=== PATIENT | female | born 1960 | race Caucasian/White ===

== ENCOUNTER 2018-10-15 12:11 | Emergency (ER) | payer MEDICARE, MEDICAID ==
[~2018-10-15] VITALS: Ht 162.6 cm; Wt 65.8 kg
[~2018-10-15 12:11] MED LIST: NEOM10DR6 EACH EAR
--- NOTE | 2018-10-15 12:15 | NUR ---
PT BROUGHT BACK TO ROOM ET WANTS TO USE THE RESTROOM BEFORE ANY ASSESSMENT DONE.
--- NOTE | 2018-10-15 12:40 | ED Chest Pain ---
General Chief Complaint: Chest Pain Stated Complaint: DIZZINESS Source: patient Exam Limitations: no limitations History of Present Illness Date Seen by Provider: Oct 15, 2018 Time Seen by Provider: 12:35 Initial Comments To ER by private vehicle with reports of intermittent dizziness and syncope. She has some right sided chest pain constant since last night after syncopal episode. She states "it feels like I was shot with an elephant gun". 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 She does after talking with her have some persecutory delusions but denies any known mental health illness. Timing/Duration: changing over time Severity/Quality: moderate Location: central Radiation: no radiation Activities at Onset: none ASA po SCREENING NURSE: No NTG SL SCREENING NURSE: No Associated Symptoms: No shortness of breath Allergies and Home Medications Allergies Uncoded Allergies: HAYFEVER, SINUS TYPE ALLERGIES (Allergy, Mild, 10/04/11) Home Medications Apixaban 5 Mg Tablet, 5 MG PO BID Prescribed by: TAVO MCGEE on 10/15/18 [id number] Patient Home Medication List Home Medication List Reviewed: Yes Review of Systems Review of Systems Constitutional: see HPI EENTM: No Symptoms Reported Respiratory: No Symptoms Reported Cardiovascular: See HPI, Chest Pain, Syncope Gastrointestinal: See HPI Genitourinary: No Symptoms Reported Musculoskeletal: no symptoms reported Skin: no symptoms reported Psychiatric/Neurological: No Symptoms Reported Endocrine: No Symptoms Reported Hematologic/Lymphatic: No Symptoms Reported Past Itmzgww-Bqyips-Segkhu Hx Patient Social History Recent Foreign Travel: No Contact w/Someone Who Travel: No Immunizations Up To Date Tetanus Booster (TDap): Unknown Past Medical History Reproductive Disorders: No Female Reproductive Disorders: Denies Sexually Transmitted Disease: No HIV/AIDS: No Anxiety Adverse Reaction/Blood Tranf: No Physical Exam Vital Signs Vital Signs - First Documented 10/15/18 12:24 Temp 98.0 Pulse 88 Resp 16 B/P (MAP) 188/123 (144) Pulse Ox 100 O2 Delivery Room Air Capillary Refill : Height, Weight, BMI Height: '" Weight: lbs. oz. 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 as well as non-persecutory delusions) Skin: Normal Color, Warm/Dry Progress/Results/Core Measures Results/Orders Lab Results Laboratory Tests Test 10/15/18 12:25 10/15/18 12:30 10/15/18 14:47 Range/Units Urine Color YELLOW Urine Clarity CLEAR Urine pH 6 5-9 Urine Specific [place] 1.015 L 1.016-1.022 Urine Protein NEGATIVE NEGATIVE Urine Glucose (UA) NEGATIVE NEGATIVE Urine Ketones NEGATIVE NEGATIVE Urine Nitrite NEGATIVE NEGATIVE Urine Bilirubin NEGATIVE NEGATIVE Urine Urobilinogen NORMAL NORMAL MG/DL Urine Leukocyte Esterase NEGATIVE NEGATIVE Urine RBC (Auto) NEGATIVE NEGATIVE Urine RBC NONE /HPF Urine WBC NONE /HPF Urine Squamous Epithelial Cells RARE /HPF Urine Crystals NONE /LPF Urine Bacteria NEGATIVE /HPF Urine Casts NONE /LPF Urine Mucus NEGATIVE /LPF Urine Culture Indicated NO Urine Opiates Screen NEGATIVE NEGATIVE Urine Oxycodone Screen NEGATIVE NEGATIVE Urine Methadone Screen NEGATIVE NEGATIVE Urine Propoxyphene Screen NEGATIVE NEGATIVE Urine Barbiturates Screen NEGATIVE NEGATIVE Ur Tricyclic Antidepressants Screen NEGATIVE NEGATIVE Urine Phencyclidine Screen NEGATIVE NEGATIVE Urine Amphetamines Screen NEGATIVE NEGATIVE Urine Methamphetamines Screen NEGATIVE NEGATIVE Urine Benzodiazepines Screen NEGATIVE NEGATIVE Urine Cocaine Screen NEGATIVE NEGATIVE Urine Cannabinoids Screen NEGATIVE NEGATIVE White Blood Count 8.1 4.3-11.0 10^3/uL Red Blood Count 4.54 4.35-5.85 10^6/uL Hemoglobin 13.9 11.5-16.0 G/DL Hematocrit 40 35-52 % Mean Corpuscular Volume 89 80-99 FL Mean Corpuscular Hemoglobin 31 25-34 PG Mean Corpuscular Hemoglobin Concent 35 32-36 G/DL Red Cell Distribution Width 13.3 10.0-14.5 % Platelet Count 234 130-400 10^3/uL Mean Platelet Volume 10.7 H 7.4-10.4 FL Neutrophils (%) (Auto) 60 42-75 % Lymphocytes (%) (Auto) 29 12-44 % Monocytes (%) (Auto) 5 0-12 % Eosinophils (%) (Auto) 5 0-10 % Basophils (%) (Auto) 1 0-10 % Neutrophils # (Auto) 4.8 1.8-7.8 X 10^3 Lymphocytes # (Auto) 2.4 1.0-4.0 X 10^3 Monocytes # (Auto) 0.4 0.0-1.0 X 10^3 Eosinophils # (Auto) 0.4 H 0.0-0.3 10^3/uL Basophils # (Auto) 0.0 0.0-0.1 10^3/uL Prothrombin Time 13.2 12.2-14.7 SEC INR Comment 1.0 0.8-1.4 Activated Partial Thromboplast Time 31 24-35 SEC D-Dimer 0.63 H 0.00-0.49 UG/ML Sodium Level 142 135-145 MMOL/L Potassium Level 3.7 3.6-5.0 MMOL/L Chloride Level 106 98-107 MMOL/L Carbon Dioxide Level 23 21-32 MMOL/L Anion Gap 13 5-14 MMOL/L Blood Urea Nitrogen 9 7-18 MG/DL Creatinine 0.78 0.60-1.30 MG/DL Estimat Glomerular Filtration Rate > 60 BUN/Creatinine Ratio 12 Glucose Level 87 70-105 MG/DL Calcium Level 9.6 8.5-10.1 MG/DL Corrected Calcium 8.5-10.1 MG/DL Magnesium Level 1.8 1.8-2.4 MG/DL Total Bilirubin 0.6 0.1-1.0 MG/DL Aspartate Amino Transf (AST/SGOT) 20 5-34 U/L Alanine Aminotransferase (ALT/SGPT) 14 0-55 U/L Alkaline Phosphatase 59 40-136 U/L Myoglobin 36.8 10.0-92.0 NG/ML Troponin I < 0.028 < 0.028 <0.028 NG/ML Total Protein 7.6 6.4-8.2 GM/DL Albumin 4.7 H 3.2-4.5 GM/DL My Orders Orders - TAVO MCGEE CHRONOMETER ADJUSTER Cbc With Automated Diff (10/15/18 12:34) Magnesium (10/15/18 12:34) Chest 1 View, Ap/Pa Only (10/15/18 12:34) Cardiac Profile 1 (10/15/18 12:34) Comprehensive Metabolic Panel (10/15/18 12:34) Myoglobin Serum (10/15/18 12:34) Protime With Inr (10/15/18 12:34) Partial Thromboplastin Time (10/15/18 12:34) O2 (10/15/18 12:34) Monitor-Rhythm Ecg Trace Only (10/15/18 12:34) Lipid Panel (10/16/18 06:00) Ed Iv/Invasive Line Start (10/15/18 12:34) Aspirin Chewable Tablet (Baby Aspirin Ch (10/15/18 12:45) Metoprolol Tartrate Injection (Lopressor (10/15/18 12:45) Ua Culture If Indicated (10/15/18 12:43) Drug Screen Stat (Urine) (10/15/18 12:43) Nitroglycerin 0.4 Mg Btl 25's (Nitrostat (10/15/18 13:00) Fibrin Degradation Products (10/15/18 13:01) Ct Angio Chest W (10/15/18 13:36) Iohexol Injection (Omnipaque 350 Mg/Ml 1 (10/15/18 14:00) Received Contrast (Hold Metformin- Contr (10/15/18 14:00) Ns (Ivpb) (Sodium Chloride 0.9% Ivpb Bag (10/15/18 14:00) Troponin I (10/15/18 14:22) Medications Given in ED Current Medications Medications Dose Ordered Sig/Emerald Route Start Time Stop Time Status Last Admin Dose Admin Aspirin 324 mg ONCE ONCE PO 10/15/18 12:45 10/15/18 12:46 DC 10/15/18 12:45 324 MG Iohexol 100 ml ONCE ONCE IV 10/15/18 14:00 10/15/18 14:01 DC 10/15/18 14:17 100 ML Nitroglycerin 1 TAB Q 5 MIN X 3 NEEDED PRN SL 10/15/18 13:00 10/15/18 13:25 0.4 MG Sodium Chloride 100 ml ONCE ONCE IV 10/15/18 14:00 10/15/18 14:01 DC 10/15/18 14:17 80 ML Vital Signs/I&O 10/15/18 12:24 Temp 98.0 Pulse 88 Resp 16 B/P (MAP) 188/123 (144) Pulse Ox 100 O2 Delivery Room Air Departure Communication (Admissions) EKG shows atrial flutter with a rate of [address] segment changes. She states that she has known atrial fibrillation but doesn't take any medications for it because she wants to "just be off pills" 1341-patient's pain is completely resolved after 1 sublingual nitroglycerin Impression Primary Impression: Atrial fibrillation Disposition: ADMITTED INPATIENT Condition: Stable Admissions Decision to Admit Reason: Admit from ER (General) Decision to Admit/Date: Oct 15, 2018 Time/Decision to Admit Time: 12:40 Departure-Patient Inst. Decision time for Depature: 15:36 Referrals: [facility] (PCP/Family) Primary Care Physician JUN FRANCISCO MD FACP [facility] Iker JOYNER MD, BASHAR J MD Patient Instructions: Atrial Fibrillation (DC) Add. Discharge Instructions: 1. You need to follow-up with cardiology. You need to take the blood thinners as directed. If you don't want to take blood thinners that's fine but beware there is a risk of stroke. Scripts Apixaban (Eliquis) 5 Mg Tablet 5 MG PO BID, #30 TAB Prov: TAVO MCGEE APRN 10/15/18 TAVO MCGEE APRN Oct 15, 2018 12:40
[2018-10-15] MEDS ORDERED: ASPIRIN 81 MG CHEW (CHILDREN'S ASA) PO ONE (12:45)
[2018-10-15] MEDS ORDERED: meTOprolol 5 MG/5 ML (LOPRESSOR) VIAL IV ONE (12:45)
[2018-10-15 12:49] LABS: BILIRUBIN,URINE NEGATIVE (NEGATIVE); CLARITY,URINE CLEAR; COLOR,URINE YELLOW; GLUCOSE, URINE (UA) NEGATIVE (NEGATIVE); KETONES,URINE NEGATIVE (NEGATIVE); LEUKOCYTE ESTERASE ,URINE NEGATIVE (NEGATIVE); NITRITE,URINE NEGATIVE (NEGATIVE); PH,URINE 6 (5-9); PROTEIN,URINE NEGATIVE (NEGATIVE); UROBILINOGEN,URINE NORMAL (NORMAL)
[2018-10-15] MEDS: NITROGLYCERIN 0.4 MG SL TABS BTL 25'S SL PRN ×2 (12:53→13:25)
[2018-10-15 12:59] LABS: PROTHROMBIN TIME PATIENT 13.2 SEC (12.2-14.7)
[2018-10-15 13:04] LABS: BASOPHILS % (AUTO) 1 % (0-10); EOSINOPHILS # (AUTO) 0.4 10^3/uL (0.0-0.3); EOSINOPHILS % (AUTO) 5 % (0-10); HEMATOCRIT 40 % (35-52); HEMOGLOBIN 13.9 G/DL (11.5-16.0); LYMPHOCYTES # (AUTO) 2.4 X 10^3 (1.0-4.0); LYMPHOCYTES % (AUTO) 29 % (12-44); MEAN CORPUSCULAR HEMOGLOBIN 31 PG (25-34); MEAN CORPUSCULAR HGB CONC 35 G/DL (32-36); MEAN CORPUSCULAR VOLUME 89 FL (80-99); MEAN PLATELET VOLUME 10.7 FL (7.4-10.4); MONOCYTES # (AUTO) 0.4 X 10^3 (0.0-1.0); MONOCYTES % (AUTO) 5 % (0-12); NEUTROPHILS # (AUTO) 4.8 X 10^3 (1.8-7.8); NEUTROPHILS % (AUTO) 60 % (42-75); PLATELET COUNT 234 10^3/uL (130-400); RED CELL DISTRIBUTION WIDTH 13.3 % (10.0-14.5); WHITE BLOOD COUNT 8.1 10^3/uL (4.3-11.0)
[2018-10-15 13:10] LABS: BACTERIA,URINE NEGATIVE /HPF; SQUAMOUS EPITHELIAL CELL,UR RARE /HPF
[2018-10-15 13:11] LABS: AMPHETAMINE SCREEN, URINE NEGATIVE (NEGATIVE); BARBITURATE SCREEN URINE NEGATIVE (NEGATIVE); BENZODIAZEPINES SCREEN URINE NEGATIVE (NEGATIVE); CANNABINOID SCREEN, URINE NEGATIVE (NEGATIVE); COCAINE SCREEN URINE NEGATIVE (NEGATIVE); METHADONE STAT NEGATIVE (NEGATIVE); METHAMPHETAMINE SCREEN URINE S NEGATIVE (NEGATIVE); OPIATE SCREEN URINE NEGATIVE (NEGATIVE); OXYCODONE STAT NEGATIVE (NEGATIVE); PROPOXYPHENE STAT NEGATIVE (NEGATIVE); TRICYCLIC ANTIDEPRESSANTS SCRE NEGATIVE (NEGATIVE)
--- NOTE | 2018-10-15 13:14 | Diagnostic Imaging Report ---
INDICATION: Dizziness. TIME OF EXAM: 1:06 PM No prior studies are available for comparison. FINDINGS: The heart size is normal. The pulmonary vascularity is unremarkable. The lungs are clear. No infiltrate, effusion or pneumothorax is detected. IMPRESSION: No acute cardiopulmonary process is detected. Dictated by: Dictated on workstation # [id number]
[2018-10-15 13:44] LABS: ALANINE AMINOTRANSFERASE 14 U/L (0-55); ALBUMIN 4.7 GM/DL (3.2-4.5); ALKALINE PHOSPHATASE 59 U/L (40-136); BILIRUBIN,TOTAL 0.6 MG/DL (0.1-1.0); BUN/CREATININE RATIO 12; CALCIUM 9.6 MG/DL (8.5-10.1); CARBON DIOXIDE 23 MMOL/L (21-32); CHLORIDE 106 MMOL/L (98-107); CREATININE SERUM 0.78 MG/DL (0.60-1.30); GFR ESTIMATED > 60; GLUCOSE 87 MG/DL (70-105); MAGNESIUM 1.8 MG/DL (1.8-2.4); POTASSIUM 3.7 MMOL/L (3.6-5.0); SODIUM 142 MMOL/L (135-145); TOTAL PROTEIN 7.6 GM/DL (6.4-8.2)
[2018-10-15] MEDS ORDERED: NS 100 ML (IVPB) BAG IV ONE (14:00)
[2018-10-15] MEDS ORDERED: IOHEXOL 350 MG/ML 100 ML (OMNIPAQUE 350) VIAL IV ONE (14:00)
[2018-10-15] MEDS ORDERED: HOLD METFORMIN - RECEIVED CONTRAST 20 ML VIAL IV SCH (14:00)
[2018-10-15 14:41] VITALS: BP 147/96
--- NOTE | 2018-10-15 14:44 | NUR ---
LAB IN ROOM DRAWING AT THIS TIME.
[2018-10-15] MEDS ORDERED: APIX5TAB PO (15:37)
--- NOTE | 2018-10-15 17:19 | Diagnostic Imaging Report ---
PROCEDURE: CT angiography of the chest with contrast. TECHNIQUE: Multiple contiguous axial images were obtained through the chest after uneventful bolus administration of intravenous contrast. 2D reconstructed CTA MIP acquisitions were also performed. Auto Exposure Controls were utilized during the CT exam to meet ALARA standards for radiation dose reduction. INDICATION: Dizziness, syncope. COMPARISON: Radiograph from 10/15/2018. FINDINGS: The pulmonary arteries are diagnostic to the segmental level. No pulmonary embolus is seen. There is mild atherosclerosis in the aorta with no aneurysm or dissection. The heart is normal in size. There is no evidence of right heart strain. No pericardial effusion is seen. No mediastinal adenopathy is seen. The axillary lymph nodes are normal. There is no pleural effusion or pneumothorax. No central endobronchial lesions are seen. No acute osseous abnormality is seen. Imaged portions of the upper abdomen are unremarkable. IMPRESSION: 1. No pulmonary embolus. No acute pulmonary abnormality is seen. Dictated by: Dictated on workstation # [id number]
== END 2018-10-15 15:51 | disposition other institution (70) ==
LOC: EDUNIT# 12:11 → ER 12:12
DX: I48.91 Unspecified atrial fibrillation (principal); F41.9 Anxiety disorder, unspecified; Z79.01 Long term (current) use of anticoagulants
CPT/HCPCS: 36415; 71045; 71275; 80053; 80306; 81000; 83735; 83874; 84484; 85025; 85379; 85610; 85730; 93005; 93041

== ENCOUNTER → 2019-03-23 | Outpatient (CLI) | payer MEDICARE, MEDICAID ==
[~2019-03-23] MED LIST changes: +APIX5TAB PO; +GADOBUTROL 7.5 MMOL/7.5 ML (GADAVIST) VIAL IV ONE
--- NOTE | 2019-03-23 16:32 | Diagnostic Imaging Report ---
PROCEDURE: MR imaging of the brain with and without contrast. TECHNIQUE: Multiplanar, multisequence MR imaging of the brain was performed with and without contrast. INDICATION: Dizziness. FINDINGS: There are no prior MRI examinations available for comparison. The CT head exam of 08/08/2012 failed to show any sign of an acute intracranial abnormality. On this exam, there is no mass, shift of the midline, or hemorrhage to indicate an acute abnormality. There is no abnormal enhancement on the postcontrast series to indicate a neoplastic or infectious process. In addition, there is no abnormal signal arising from the brain on the diffusion series to suggest an area of acute ischemia. There are vague areas of slightly increased signal in the periventricular white matter of the FLAIR series. These findings are nonspecific but may be related to encephalomalacia from microvascular ischemia. The ventricles are not abnormally dilated and stable in size when compared to the prior CT head exam. The orbits are symmetrical and within normal limits. The sella is not enlarged, and the expected carotid flow voids are evident bilaterally. The sinuses are generally clear. The seventh and eighth nerve complexes are unremarkable. The images through the skull base do show an asymmetric roughly 1 x 1 cm soft tissue density in the mastoid air cells on the right (axial T2, page 8/24). This finding does not enhance on the postcontrast series and may be secondary to long-standing mastoiditis. There is a similar-appearing but much smaller area on the left. If further imaging of this finding is desired, then either dedicated MRI IAC exams or CT of the temporal bones would be recommended. IMPRESSION: 1. There is no evidence for an acute intracranial abnormality. 2. There is no abnormal enhancement to suggest a neoplastic or infectious process either. 3. The asymmetric soft tissue density in the mastoid air cells on the right may be secondary to long-standing mastoiditis. It would be unlikely that this is neoplastic in nature. Recommendations as above. Dictated by: Dictated on workstation # [id number]
== END ==
LOC: RAD 12:04
PROVIDERS: ATTEND Nurse Practitioner Family
DX: G44.221 Chronic tension-type headache, intractable (principal); H74.8X3 Other specified disorders of middle ear and mastoid, bilateral; R42 Dizziness and giddiness
CPT/HCPCS: 70553

== ENCOUNTER → 2019-05-19 | Outpatient (CLI) | payer MEDICARE, MEDICAID ==
[~2019-05-19] MED LIST changes: -GADOBUTROL 7.5 MMOL/7.5 ML (GADAVIST) VIAL IV ONE; +HOLD METFORMIN - RECEIVED CONTRAST 20 ML VIAL IV SCH; +IOHEXOL 350 MG/ML 100 ML (OMNIPAQUE 350) VIAL IV ONE; +NS 100 ML (IVPB) BAG IV ONE
--- NOTE | 2019-05-19 11:07 | Diagnostic Imaging Report ---
PROCEDURE: US Thyroid. TECHNIQUE: Multiple Real-time grayscale images were obtained of the thyroid in various projections. INDICATION: Goiter. COMPARISON: 10/24/2010. FINDINGS: The right lobe of the thyroid gland measures 4.3 x 1.3 x 1.3 cm. It demonstrates a homogeneous echotexture. A 0.7 x 0.5 cm solid hypoechoic nodule is noted within the posterior aspect of the mid right thyroid lobe, not significantly changed since 2010. The vascularity is slightly increased within the right thyroid lobe. The left lobe of the thyroid gland measures 3.5 x 1.2 x 1.6 cm. It maintains a homogeneous echotexture without discrete nodule. The vascularity is slightly increased within the left lobe of thyroid gland. The isthmus is unremarkable. IMPRESSION: Stable subcentimeter right thyroid nodule. Given the stability since 2010, this is felt to be benign. Mildly hyperemic thyroid gland which can be seen with underlying thyroiditis. Dictated by: Dictated on workstation # [id number]
--- NOTE | 2019-05-19 12:32 | Diagnostic Imaging Report ---
EXAMINATION: CT of the temporal bones with and without contrast. INDICATION: Asymmetric soft tissue prominence in the right mastoid air cells. COMPARISON: MRI brain on 03/23/2019. TECHNIQUE: Thin section helical CT was performed through the temporal bones with and without contrast and reformatted into coronal and sagittal planes. Dose reduction techniques were utilized. FINDINGS: On the right, the external auditory canal is patent. There is no evidence of thickening of the tympanic membrane. The ossicles on the right appear intact. There is no evidence of soft tissue identified within the middle ear. There is no evidence of bony erosion. The scutum appears intact. The internal auditory canal is of normal size. The course of the facial nerve is normal. There is no evidence of jugular bulb dehiscence. There is no aberrancy of the right internal carotid artery. Fluid is seen in the right mastoid air cells with loss of septations in parts of the right mastoid air cells, likely representing longstanding inflammation. The semicircular canals, cochlea and vestibule demonstrate normal CT appearances. There is no enlargement of the vestibular aqueduct. On the left, the external auditory canal is patent. There is no evidence of thickening of the tympanic membrane. The ossicles on the left appear intact. There is no evidence of soft tissue identified within the middle ear. There is no evidence of bony erosion. The scutum appears intact. The internal auditory canal is of normal size. The course of the facial nerve is normal. There is no evidence of jugular bulb dehiscence. There is no aberrancy of the left internal carotid artery. A small mastoid effusion is present. The semicircular canals, cochlea and vestibule demonstrate normal CT appearances. There is no enlargement of the vestibular aqueduct. Visualized intracranial contents demonstrate no evidence of mass effect. The basilar cisterns are patent. Temporomandibular joints are within normal limits. IMPRESSION: 1. Bilateral mastoid effusions, right greater than left. There are loss of some septations in the right mastoid air cells, likely representing longstanding inflammation or infection. No evidence of soft tissue component or acute otitis media. 2. Unremarkable CT appearance of the middle and inner ear structures bilaterally. Dictated by: Dictated on workstation # [id number]
== END ==
LOC: RAD 09:57
PROVIDERS: ATTEND Otolaryngology Otolaryngology/Facial Plastic Surgery
DX: E04.1 Nontoxic single thyroid nodule (principal); M25.48 Effusion, other site
CPT/HCPCS: 70482; 76536

== ENCOUNTER 2019-07-18 13:57 | Emergency (ER) | payer MEDICARE, MEDICAID ==
[~2019-07-18 13:57] MED LIST changes: -HOLD METFORMIN - RECEIVED CONTRAST 20 ML VIAL IV SCH; -IOHEXOL 350 MG/ML 100 ML (OMNIPAQUE 350) VIAL IV ONE; -NS 100 ML (IVPB) BAG IV ONE
--- OUTSIDE RECORDS SUMMARY | 2019-07-18 14:07 | XMS REPORT ---
Author Author Opal BERG Organization [facility] Address [address] [place] [address] Care Team Providers Care Analysis Consultant Name Role Phone ASA BERG Unavailable PROBLEMS Type Condition ICD9-CM Code GPL56-RP Code Onset Dates Condition S tatus SNOMED Code Problem Screening for malignant neoplasm of the cervix V76.2 Active 512428404 Problem Screening examination for venereal disease V74.5 Active 167336281 Problem Unspecified hearing loss 389.9 Activ e 37275104 Problem Chronic atrial fibrillation I48.2 Ac tive 431137483 Problem Headache 784.0 Active 39220700 Problem Unspecified symptom associated with female genital organs 625.9 Active 125381328 Problem Atrial fibrillation 427.31 Active 01227447 Problem Unspecified essential hypertension 401.9 Active [id number] ALLERGIES No Information ENCOUNTERS Encounter Location Date Diagnosis [facility] [place] [id number] [place] [id number] Nov, [facility] [place] [address] [facility] [id number] [address] [place] [id number] Sep, Chronic atrial fibrillation I48.2 ; Syncope, unspecified syncope type R55 and Cervicalgia M54.2 [facility] [place] [address] [facility] [id number] [address] [place] [id number] Jul, [facility] [place] [address] [facility] [id number] [address] [place] [id number] Jul, [facility] [place] [address] [facility] [id number] [address] [place] [id number] Apr, [facility] [place] [address] [facility] [id number] [address] [place] [id number] Apr, [facility] [place] [address] [place] [id number] [address] [place] [phone] August, [facility] [address] [id number] [address] [place] [address], [place] [id number] 15 May, 2012 [facility] [address] [id number] [address] [place] [address], [place] [address] 14 May, 2012 [facility] [address] [id number] [address] [place] [address], [place] [id number] 13 May, 2012 [facility] [address] [id number] [address] [place] [address], [place] [id number] 11 May, 2012 [facility] [address] [id number] [address] [place] [address], [place] [id number] 09 May, 2012 [facility] [address] [id number] [address] [place] [address], [place] [id number] 08 May, 2012 [facility] [address] [id number] [address] [place] [address], [place] [id number] 07 May, 2012 [facility] [address] [id number] [address] [place] [address], [place] [id number] 06 May, 2012 [facility] [address] [id number] [address] [place] [address], [place] [id number] 06 May, 2012 [facility] [address] [id number] [address] [place] [address], [place] [id number] Oct, [facility] [address] [id number] [address] [place] [address], [place] [address] Sep, [facility] [address] [id number] [address] [place] [address], [place] [id number] Sep, [facility] [address] [id number] [address] [place] [address], [place] [id number] August, [facility] [address] [id number] [address] [place] [address], [place] [id number] August, [facility] [address] [id number] [address] [place] [address], [place] [id number] August, [facility] [address] [facility] [id number] [address] [place] [address] August, [facility] [address] [facility] [id number] [address] [place] [address] August, [facility] [address] [facility] [id number] [address] [place] [address] Nov, IMMUNIZATIONS No Known Immunizations SOCIAL HISTORY Never Assessed REASON FOR VISIT PLAN OF CARE VITAL SIGNS Height 67 in 2011-09-27 Weight 160.3 lbs 2011-09-27 Temperature 98 degrees Fahrenheit 2011-09-27 Heart Rate 108 bpm 2011-09-27 Respiratory Rate 16 2011-09-27 Blood pressure systolic 150 mmHg 2011-09-27 Blood pressure diastolic 94 mmHg 2011-09-27 MEDICATIONS Unknown Medications RESULTS No Results PROCEDURES Procedure Date Ordered Result Body Site LIPID PANEL September 27, 2011 COMPREHEN METABOLIC PANEL September 27, 2011 X-RAY EXAM OF LOWER SPINE September 27, 2011 VENIPUNCT, ROUTINE* September 27, 2011 INSTRUCTIONS MEDICATIONS ADMINISTERED No Known Medications
--- OUTSIDE RECORDS SUMMARY | 2019-07-18 14:08 | XMS REPORT ---
Author Author Opal BERG Organization [facility] Address [address] [place] [address] Care Team Providers Care Travel Freight And Passenger Agent Name Role Phone ASA BERG Unavailable PROBLEMS Type Condition ICD9-CM Code [id number] Code Onset Dates Condition S tatus SNOMED Code Problem Screening for malignant neoplasm of the cervix V76.2 Active 582693734 Problem Screening examination for venereal disease V74.5 Active 118241825 Problem Unspecified hearing loss 389.9 Activ e 00353399 Problem Chronic atrial fibrillation I48.2 Ac tive 037746196 Problem Headache 784.0 Active 63312376 Problem Unspecified symptom associated with female genital organs 625.9 Active 708295434 Problem Atrial fibrillation 427.31 Active 48795531 Problem Unspecified essential hypertension 401.9 Active [id number] ALLERGIES No Information ENCOUNTERS Encounter Location Date Diagnosis [facility] [address] [facility] [id number] [address] [place] [phone] Nov, [facility] [address] [facility] [id number] [address] [place] [phone] Sep, Chronic atrial fibrillation I48.2 ; Syncope, unspecified syncope type R55 and Cervicalgia M54.2 [facility] [address] [facility] [id number] [address] [place] [address] Jul, [facility] [address] [facility] [id number] [address] [place] [phone] Jul, [facility] [address] [facility] [id number] [address] [place] [phone] Apr, [facility] [address] [facility] [id number] [address] [place] [phone] Apr, [facility] [address] [place] [id number] [address] [place] [phone] August, [facility] [address] [id number] [address] [place] [address], [place] [address] 15 May, 2012 [facility] [address] [id number] [address] [place] [address], [place] [address] 14 May, 2012 [facility] [address] [id number] [address] [place] [address], [place] [address] 13 May, 2012 [facility] [address] [id number] [address] [place] [address], [place] [address] 11 May, 2012 [facility] [address] [id number] [address] [place] [address], [place] [address] 09 May, 2012 [facility] [address] [id number] [address] [place] [address], [place] [address] 08 May, 2012 [facility] [address] [id number] [address] [place] [address], [place] [address] 07 May, 2012 [facility] [address] [id number] [address] [place] [address], [place] [address] 06 May, 2012 [facility] [address] [id number] [address] [place] [address], [place] [address] 06 May, 2012 [facility] [address] [id number] [address] [place] [address], [place] [address] Oct, [facility] [address] [id number] [address] [place] [address], [place] [address] Sep, [facility] [address] [id number] [address] [place] [address], [place] [address] Sep, [facility] [address] [id number] [address] [place] [address], [place] [address] August, [facility] [address] [id number] [address] [place] [address], [place] [address] August, [facility] [address] [id number] [address] [place] [address], [place] [address] August, [facility] [address] [facility] [id number] [address] [place] [phone] August, [facility] [address] [facility] [id number] [address] [place] [phone] August, [facility] [address] [facility] [id number] [address] [place] [address] Nov, IMMUNIZATIONS No Known Immunizations SOCIAL HISTORY Never Assessed REASON FOR VISIT PLAN OF CARE VITAL SIGNS MEDICATIONS Unknown Medications RESULTS No Results PROCEDURES No Known procedures INSTRUCTIONS MEDICATIONS ADMINISTERED No Known Medications
--- OUTSIDE RECORDS SUMMARY | 2019-07-18 14:08 | XMS REPORT | Continuity of Care Document ---
Author Organization Unknown Address Unknown Phone Unavailable Allergies Active Description Code Type Severity Reaction Onset Reported/Identified Relationship to Patient Clinical Status Yes propranolol Drug Allergy 12/15/2008 Yes propranolol Drug Allergy N/A N/A 12/15/2008 Medications There is no data. Problems Date Dx Coded Attending Type Code Diagnosis Diagnosed By 12/15/2008 ASA BERG APRN 242.90 HYPERTHYROIDISM 02/01/2009 ASA BERG APRN NODX NO DIAGNOSIS 09/30/2009 ASA BERG APRN 724.5 BACKACHE 09/30/2009 ASA BERG APRN 847.0 SPRAIN/STRAIN NECK 10/25/2010 ASA BERG APRN 300.00 AN ANXIETY UNSPEC 09/18/2011 ASA BERG APRN 389.9 UNSPECIFIED HEARING LOSS 09/18/2011 ASA BERG APRN 401.9 HYPERTENSION (SYSTEMIC) 09/18/2011 ASA BERG APRN 427.31 ATRIAL FIBRILLATION 09/18/2011 ASA BERG APRN 625.9 PELVIC PAIN 09/18/2011 ASA BERG APRN V76.2 CERVICAL CANCER SCREENING (PAP SMEAR) 06/04/2012 ASA BERG APRN 784.0 HEADACHE 06/04/2012 ASA BERG APRN V74.5 STD SCREEN Procedures Code Description [place] [address] TRIC HOMONAS (IN-HOUSE) 06/04/2012 29384 GC/C HLAM PROBE (STATE) 06/05/2012 05016 CULT URE UROGENITAL 06/05/2012 Results Test Result Range LIPID PANEL - 03/06/19 09:27 CHOLESTEROL, TOTAL 253 mg/dL <200 HDL CHOLESTEROL 69 mg/dL >50 TRIGLYCERIDES 78 mg/dL <150 LDL-CHOLESTEROL 166 mg/dL (calc) NRG CHOL/HDLC RATIO 3.7 (calc) <5.0 NON HDL CHOLESTEROL 184 mg/dL (calc) <13 0 Encounters ACCT No. Visit Date/Time Discharge Status Pt. Type Provider Facility Loc./Unit Complaint [id number] 03/06/2019 10:00:00 03/06/2019 23:59:5 9 [facility] [id number] 03/06/2019 10:00:00 Document Registration [id number] 06/04/2012 14:03:00 06/04/2012 23:59: 59 [facility] Outpatient ASA BERG APRN S
--- OUTSIDE RECORDS SUMMARY | 2019-07-18 14:08 | XMS REPORT ---
Author Author Opal BERG Organization [facility] Address [address] [place] [address] Care Team Providers Care Database Reporting Consultant Name Role Phone ASA BERG Unavailable PROBLEMS Type Condition ICD9-CM Code VCA41-AZ Code Onset Dates Condition S tatus SNOMED Code Problem Screening for malignant neoplasm of the cervix V76.2 Active 487893398 Problem Screening examination for venereal disease V74.5 Active 862971703 Problem Unspecified hearing loss 389.9 Activ e 61180239 Problem Chronic atrial fibrillation I48.2 Ac tive 014069483 Problem Headache 784.0 Active 43475237 Problem Unspecified symptom associated with female genital organs 625.9 Active 805031894 Problem Atrial fibrillation 427.31 Active 19927791 Problem Unspecified essential hypertension 401.9 Active 98617157 ALLERGIES No Information ENCOUNTERS Encounter Location Date Diagnosis [facility] [address] [facility] [id number] [address] [place] [phone] Nov, [facility] [address] [facility] [id number] [address] [place] [address] Sep, Chronic atrial fibrillation I48.2 ; Syncope, unspecified syncope type R55 and Cervicalgia M54.2 [facility] [address] [facility] [id number] [address] [place] [address] Jul, [facility] [address] [facility] [id number] [address] [place] [phone] Jul, [facility] [address] [facility] [id number] [address] [place] [address] Apr, [facility] [address] [facility] [id number] [address] [place] [phone] Apr, [facility] [address] [place] [id number] [address] [place] [phone] August, [facility] [address] [id number] [address] [place] [address], [place] [address] 15 May, 2012 [facility] [address] [id number] [address] [place] [address], [place] [address] 14 May, 2012 [facility] [address] [id number] [address] [place] [address], [place] [address] 13 May, 2012 [facility] [address] [id number] [address] [place] [address], [place] [address] 11 May, 2012 [facility] [address] [id number] [address] [place] [address], [place] [address] 09 May, 2012 [facility] [address] [id number] [address] [place] [address], [place] [address] 08 May, 2012 [facility] [address] [id number] [address] [place] [address], [place] [address] 07 May, 2012 [facility] [address] [id number] [address] [place] [address], [place] [address] 06 May, 2012 [facility] [address] [id number] [address] [place] [address], [place] [address] [address], [address] [facility] [address] [id number] [address] [place] [address], [place] [address] Oct, [facility] [address] [id number] [address] [place] [address], [place] [address] Sep, [facility] [address] [id number] [address] [place] [address], [place] [address] Sep, [facility] [address] [id number] [address] [place] [address], [place] [address] August, [facility] [address] [id number] [address] [place] [address], [place] [address] August, [facility] [address] [id number] [address] [place] [address], [place] [address] August, [facility] [address] [facility] [id number] [address] [place] [phone] August, [facility] [address] [facility] [id number] [address] [place] [phone] August, [facility] [address] [facility] [id number] [address] [place] [phone] Nov, IMMUNIZATIONS No Known Immunizations SOCIAL HISTORY Never Assessed REASON FOR VISIT PLAN OF CARE VITAL SIGNS MEDICATIONS Unknown Medications RESULTS No Results PROCEDURES No Known procedures INSTRUCTIONS MEDICATIONS ADMINISTERED No Known Medications
--- OUTSIDE RECORDS SUMMARY | 2019-07-18 14:08 | XMS REPORT ---
Author Author Opal BERG Organization [facility] Address [address] [place] [address] Care Team Providers Care Non Profit Financial Controller Name Role Phone ASA BERG Unavailable PROBLEMS Type Condition ICD9-CM Code ICG68-PS Code Onset Dates Condition S tatus SNOMED Code Problem Screening for malignant neoplasm of the cervix V76.2 Active 618134346 Problem Screening examination for venereal disease V74.5 Active 165088657 Problem Unspecified hearing loss 389.9 Activ e 08629324 Problem Chronic atrial fibrillation I48.2 Ac tive 028057262 Problem Headache 784.0 Active 93363999 Problem Unspecified symptom associated with female genital organs 625.9 Active 453362068 Problem Atrial fibrillation 427.31 Active 33658834 Problem Unspecified essential hypertension 401.9 Active 39366000 ALLERGIES No Information ENCOUNTERS Encounter Location Date Diagnosis [facility] [address] [facility] [id number] [address] [place] [phone] Nov, [facility] [address] [facility] [id number] [address] [place] [phone] Sep, Chronic atrial fibrillation I48.2 ; Syncope, unspecified syncope type R55 and Cervicalgia M54.2 [facility] [address] [facility] [id number] [address] [place] [phone] Jul, [facility] [address] [facility] [id number] [address] [place] [phone] Jul, [facility] [address] [facility] [id number] [address] [place] [phone] Apr, [facility] [address] [facility] [id number] [address] [place] [phone] Apr, [facility] [address] [place] [id number] [address] [place] [phone] August, [facility] [address] [id number] [address] [place] [address], [place] [address] 15 May, 2012 [facility] [address] [id number] [address] [place] [address], [place] [address] 14 May, 2012 [facility] [address] [id number] [address] [place] [address], [place] [address] 13 May, 2012 [facility] [address] [id number] [address] [place] [address], [place] [address] 11 May, 2012 [facility] [address] [id number] [address] [place] [address], [place] [address] 09 May, 2012 [facility] [address] [id number] [address] [place] [address], [place] [address] 08 May, 2012 [facility] [address] [id number] [address] [place] [address], [place] [address] 07 May, 2012 [facility] [address] [id number] [address] [place] [address], [place] [address] 06 May, 2012 [facility] [address] [id number] [address] [place] [address], [place] [address] 06 May, 2012 [facility] [address] [id number] [address] [place] [address], [place] [address] Oct, [facility] [address] [id number] [address] [place] [address], [place] [address] Sep, [facility] [address] [id number] [address] [place] [address], [place] [address] Sep, [facility] [address] [id number] [address] [place] [address], [place] [address] August, [facility] [address] [id number] [address] [place] [address], [place] [address] August, [facility] [address] [id number] [address] [place] [address], [place] [address] August, [facility] [address] [facility] [id number] [address] [place] [phone] August, [facility] [address] [facility] [id number] [address] [place] [phone] August, [facility] [address] [facility] [id number] [address] [place] [phone] Nov, IMMUNIZATIONS No Known Immunizations SOCIAL HISTORY Never Assessed REASON FOR VISIT PLAN OF CARE VITAL SIGNS MEDICATIONS Unknown Medications RESULTS No Results PROCEDURES No Known procedures INSTRUCTIONS MEDICATIONS ADMINISTERED No Known Medications
[2019-07-18] MEDS ORDERED: NS IV 1000 ML 1,000 ML IV STA (14:24)
[2019-07-18] MEDS ORDERED: meTOprolol 5 MG/5 ML (LOPRESSOR) VIAL IV ONE (14:30)
--- NOTE | 2019-07-18 14:30 | ED Cardiac General ---
History of Present Illness General Chief Complaint: Chest Pain Stated Complaint: CHEST TIGHTNESS Nursing Triage Note: States she used a bug spray last year and started having fainting spells after using it. Is worried about her heart and wants an ECG. Is having funny feelings in her chest for some time. Has hx of a-fib. History of Present Illness Date Seen by Provider: Jul 18, 2019 Time Seen by Provider: 14:15 Initial Comments This patient is a 59-year-old female that is a very poor historian. Vaguely states that she's been having issues with her chest for about a year. Intermittently a near syncopal episodes states that she has been waiting on a provider to come from [place] on for an appointment and states that she has an funny feeling in her chest requested be evaluated medications she is okay to wait until . Patient is not very clear about exactly what her medical problems but the patient does finally admit that she's had a history of atrial fibrillation for about 10 years and only medication she takes at home is Elequist for her atrial fibrillation. Patient denies any significant chest pain. Denies nausea. Patient was placed on a naturalist and an atrial fibrillation rhythm with a rapid ventricular response with a heart rate of 134. We'll get a history of the patient patient appeared to have a heart region from anywhere from 110 up to 150s. We'll do medical evaluation treatment is needed. Patient is a significantly poor historian. Timing/Duration: intermittent Severity: moderate Activities at Onset: activity Prior CP/Workup: other (patient states numerous evaluations from her primary care doctor and does have an evaluation this with a specialist the patient is unable to tell me exactly what testing has been done. To be vague in her answers.) Associated Systoms: No Denies Symptoms, No Chest Pain, No Cough, No Diaphoresis, No Fever/Chills, No Headaches, No Loss of Appetite, No Malaise, No Nausea/Vomiting, No Rash, No Seizure, No Shortness of Air, No Syncope, No Weakness, No Other Allergies and Home Medications Allergies Coded Allergies: No Known Drug Allergies (Unverified , 07/18/19) Patient Home Medication List Home Medication List Reviewed: Yes Review of Systems Review of Systems Constitutional: no symptoms reported, see HPI; No chills, No diaphoresis, No dizziness, No fever, No malaise, No weakness, No weight gain, No weight loss, No other EENTM: No No Symptoms Reported, No See HPI, No Blurred Vision, No Double Vision, No Eye Pain, No Eye Tearing, No Ear Drainage, No Ear Pain, No Mouth Pain, No Mouth Swelling, No Nose Congestion, No Nose Pain, No Throat Pain, No Throat Swelling, No Other Respiratory: Denies No Symptoms Reported, Denies See HPI, Denies Cough, Denies Orthopnea, Denies Shortness of Air, Denies SOA With Exertion, Denies SOA at Rest, Denies Stridor, Denies Wheezing, Denies Other Cardiovascular: No Symptoms Reported, See HPI; Denies Chest Pain, Denies Edema; Irregular Heart Rate; Denies Lightheadedness; Palpitations; Denies Syncope, Denies Other Gastrointestinal: No Symptoms Reported, See HPI; Denies Abdomen Distended, Denies Abdominal Pain, Denies Blood Streaked Stools, Denies Constipated, Denies Diarrhea, Denies Difficulty Swallowing, Denies Nausea, Denies Poor Appetite, Denies Poor Fluid Intake, Denies Rectal Bleeding, Denies Vomiting, Denies Other Genitourinary: No Symptoms Reported, See HPI; Denies Burning, Denies Discharge, Denies Drainage, Denies Frequency, Denies Flank Pain, Denies Hematuria, Denies Incontinence, Denies Pain, Denies Urgency, Denies Other Musculoskeletal: No no symptoms reported, No see HPI, No back pain, No gout, No joint pain, No joint swelling, No muscle pain, No muscle stiffness, No muscle cramps, No muscle twitching, No muscle weakness, No neck pain, No other Skin: No no symptoms reported, No see HPI, No change in color, No change in hair/nails, No dryness, No hx of skin cancer, No lesions, No lumps, No pruritus, No rash, No other Past [facility] Hx Patient Social History Recent Foreign Travel: No Contact w/Someone Who Travel: No Recent Infectious Disease Expo: No Physical Exam Vital Signs Vital Signs - First Documented 07/18/19 14:08 Temp 36.9 Pulse 106 Resp 16 B/P (MAP) 158/86 (110) Pulse Ox 98 Capillary Refill : Less Than 3 Seconds Height, Weight, BMI Height: '" Weight: lbs. oz. kg; BMI Method: General Appearance: No Apparent Distress, WD/WN HEENT: PERRL/EOMI, TMs Normal, Normal ENT Inspection, Pharynx Normal Neck: Full Range of Motion, Normal Inspection, Non Tender Respiratory: Chest Non Tender, Lungs Clear, Normal Breath Sounds, No Accessory Muscle Use, No Respiratory Distress Cardiovascular: No Edema, No Gallop, No JVD, No Murmur, Normal Peripheral Pulses, Irregularly Irregular Gastrointestinal: Normal Bowel Sounds, No Organomegaly, No Pulsatile Mass, Non Tender Extremity: Normal Capillary Refill, Normal Inspection, Normal Range of Motion, Non Tender, No Calf Tenderness, No Pedal Edema Neurologic/Psychiatric: Alert, Oriented x3, No Motor/Sensory Deficits, Normal Mood/Affect Progress/Results/Core Measures Results/Orders Lab Results Laboratory Tests Test 07/18/19 14:32 07/18/19 15:39 Range/Units White Blood Count 6.5 4.3-11.0 10^3/uL Red Blood Count 4.79 4.35-5.85 10^6/uL Hemoglobin 14.5 11.5-16.0 G/DL Hematocrit 42 35-52 % Mean Corpuscular Volume 88 80-99 FL Mean Corpuscular Hemoglobin 30 25-34 PG Mean Corpuscular Hemoglobin Concent 35 32-36 G/DL Red Cell Distribution Width 13.2 10.0-14.5 % Platelet Count 239 130-400 10^3/uL Mean Platelet Volume 10.7 H 7.4-10.4 FL Neutrophils (%) (Auto) 54 42-75 % Lymphocytes (%) (Auto) 35 12-44 % Monocytes (%) (Auto) 6 0-12 % Eosinophils (%) (Auto) 4 0-10 % Basophils (%) (Auto) 1 0-10 % Neutrophils # (Auto) 3.5 1.8-7.8 X 10^3 Lymphocytes # (Auto) 2.3 1.0-4.0 X 10^3 Monocytes # (Auto) 0.4 0.0-1.0 X 10^3 Eosinophils # (Auto) 0.2 0.0-0.3 10^3/uL Basophils # (Auto) 0.1 0.0-0.1 10^3/uL Prothrombin Time 12.8 12.2-14.7 SEC INR Comment 0.9 0.8-1.4 Sodium Level 140 135-145 MMOL/L Potassium Level 4.4 3.6-5.0 MMOL/L Chloride Level 105 98-107 MMOL/L Carbon Dioxide Level 20 L 21-32 MMOL/L Anion Gap 15 H 5-14 MMOL/L Blood Urea Nitrogen 13 7-18 MG/DL Creatinine 0.88 0.60-1.30 MG/DL Estimat Glomerular Filtration Rate > 60 BUN/Creatinine Ratio 15 Glucose Level 114 H 70-105 MG/DL Calcium Level 9.5 8.5-10.1 MG/DL Corrected Calcium 8.5-10.1 MG/DL Total Bilirubin 0.4 0.1-1.0 MG/DL Aspartate Amino Transf (AST/SGOT) 22 5-34 U/L Alanine Aminotransferase (ALT/SGPT) 14 0-55 U/L Alkaline Phosphatase 61 40-136 U/L Myoglobin 29.5 10.0-92.0 NG/ML Troponin I < 0.30 <0.30 NG/ML Total Protein 7.6 6.4-8.2 GM/DL Albumin 4.7 H 3.2-4.5 GM/DL My Orders Orders - JOSE ALFREDO LYNCH MD Ed Iv/Invasive Line Start (07/18/19 14:24) Cbc With Automated Diff (07/18/19 14:24) Comprehensive Metabolic Panel (07/18/19 14:24) Urinalysis (07/18/19 14:24) Protime With Inr (07/18/19 14:24) Chest 1 View Ap/Pa Only (07/18/19 14:24) Ekg Tracing (07/18/19 14:24) Ns Iv 1000 Ml (Sodium Chloride 0.9%) (07/18/19 14:24) Troponin I Fs (07/18/19 14:24) Myoglobin Serum (07/18/19 14:24) Metoprolol Tartrate Injection (Lopressor (07/18/19 14:30) Thyroid Stimulating Hormone (07/18/19 14:30) Medications Given in ED Current Medications Medications Dose Ordered Sig/Emerald Route Start Time Stop Time Status Last Admin Dose Admin Metoprolol Tartrate 5 mg ONCE ONCE IV 07/18/19 14:30 07/18/19 14:31 DC 07/18/19 14:53 5 MG Vital Signs/I&O 07/18/19 14:08 Temp 36.9 Pulse 106 Resp 16 B/P (MAP) 158/86 (110) Pulse Ox 98 Blood Pressure Mean: 110 Progress Progress Note : Time: 15:51 Progress Note Patient refried refuses to provide a urine. Metoprolol has corrected her A. fib rhythm. Patient is in an A. fib rhythm but has a heart rate in the 88. RVR has resolved. Blood pressure is 129/80 patient has no complaints at this time. Patient does have a scheduled appointment with cardiology on and with her PCP. Patient has a long history of A. fib. We will place the patient on metoprolol daily. Patient is to follow-up with her scheduled appointment as instructed. Patient states understanding. Initial ECG Impression Date: Jul 18, 2019 Initial ECG Impression Time: 14:06 Initial ECG Rate: 134 Initial ECG Rhythm: A Fib/Flutter Initial ECG Impression: Atrial Fibrillation w/RVR Initial ECG Comparisson: No Previous ECG Available Departure Impression Primary Impression: Atrial fibrillation with RVR Additional Impression: Palpitations Disposition: 01 HOME, SELF-CARE Condition: Stable Departure-Patient Inst. Decision time for Depature: 15:53 Patient Instructions: Atrial Fibrillation (DC), Palpitations (DC) Add. Discharge Instructions: Take medications as prescribed. Follow-up with your scheduled appointment as instructed. Please discuss at length with your PCP or specialist about atrial fibrillation with rapid ventricular spot response. All discharge instructions reviewed with patient and/or family. Voiced understanding. Scripts Metoprolol Tartrate (Metoprolol Tartrate) 25 Mg Tablet 25 MG PO BID, #60 TAB Prov: JOSE ALFREDO LYNCH MD 07/18/19 JOSE ALFREDO LYNCH MD Jul 18, 2019 14:29
--- NOTE | 2019-07-18 14:49 | Diagnostic Imaging Report ---
INDICATION: Chest tightness of one years' duration, tachycardia. EXAMINATION: Single view of the chest was obtained. FINDINGS: Heart size and configuration normal. No failure pattern, effusion or pneumothorax. IMPRESSION: Negative. Dictated by: Dictated on workstation # [id number]
[2019-07-18 14:54] LABS: BASOPHILS % (AUTO) 1 % (0-10); EOSINOPHILS % (AUTO) 4 % (0-10); HEMATOCRIT 42 % (35-52); HEMOGLOBIN 14.5 G/DL (11.5-16.0); LYMPHOCYTES # (AUTO) 2.3 X 10^3 (1.0-4.0); LYMPHOCYTES % (AUTO) 35 % (12-44); MEAN CORPUSCULAR HEMOGLOBIN 30 PG (25-34); MEAN CORPUSCULAR HGB CONC 35 G/DL (32-36); MEAN CORPUSCULAR VOLUME 88 FL (80-99); MEAN PLATELET VOLUME 10.7 FL (7.4-10.4); MONOCYTES % (AUTO) 6 % (0-12); NEUTROPHILS # (AUTO) 3.5 X 10^3 (1.8-7.8); NEUTROPHILS % (AUTO) 54 % (42-75); PLATELET COUNT 239 10^3/uL (130-400); RED CELL DISTRIBUTION WIDTH 13.2 % (10.0-14.5); WHITE BLOOD COUNT 6.5 10^3/uL (4.3-11.0)
[2019-07-18 14:55] LABS: BASOPHILS # (AUTO) 0.1 10^3/uL (0.0-0.1); EOSINOPHILS # (AUTO) 0.2 10^3/uL (0.0-0.3); MONOCYTES # (AUTO) 0.4 X 10^3 (0.0-1.0)
[2019-07-18 15:04] LABS: INR 0.9 (0.8-1.4); PROTHROMBIN TIME PATIENT 12.8 SEC (12.2-14.7)
[2019-07-18 15:19] LABS: ALANINE AMINOTRANSFERASE 14 U/L (0-55); ALKALINE PHOSPHATASE 61 U/L (40-136); BILIRUBIN,TOTAL 0.4 MG/DL (0.1-1.0); BUN/CREATININE RATIO 15; CALCIUM 9.5 MG/DL (8.5-10.1); CARBON DIOXIDE 20 MMOL/L (21-32); CHLORIDE 105 MMOL/L (98-107); CREATININE SERUM 0.88 MG/DL (0.60-1.30); GFR ESTIMATED > 60; GLUCOSE 114 MG/DL (70-105); POTASSIUM 4.4 MMOL/L (3.6-5.0); SODIUM 140 MMOL/L (135-145); TOTAL PROTEIN 7.6 GM/DL (6.4-8.2)
[2019-07-18 15:20] LABS: ALBUMIN 4.7 GM/DL (3.2-4.5)
[2019-07-18] MEDS ORDERED: METO-333 PO (15:54)
[2019-07-18 15:56] LABS: BACTERIA,URINE NEGATIVE /HPF; BILIRUBIN,URINE NEGATIVE (NEGATIVE); CLARITY,URINE CLEAR; COLOR,URINE YELLOW; GLUCOSE, URINE (UA) NEGATIVE (NEGATIVE); KETONES,URINE NEGATIVE (NEGATIVE); LEUKOCYTE ESTERASE ,URINE TRACE (NEGATIVE); NITRITE,URINE NEGATIVE (NEGATIVE); PH,URINE 6.5 (5-9); PROTEIN,URINE NEGATIVE (NEGATIVE); RBC,URINE 0-2 /HPF; SQUAMOUS EPITHELIAL CELL,UR 0-2 /HPF; WBC,URINE 0-2 /HPF
[2019-07-18 15:58] VITALS: BP 129/80
== END 2019-07-18 16:00 | disposition home or self-care (01) ==
LOC: ER FS 14:01 → MERGE 14:01 → ER FS 16:00
DX: I48.91 Unspecified atrial fibrillation (principal); Z79.01 Long term (current) use of anticoagulants
CPT/HCPCS: 36415; 71045; 80053; 81000; 83874; 84443; 84484; 85025; 85610; 93005

== ENCOUNTER → 2019-08-25 | Outpatient (CLI) | payer MEDICARE, MEDICAID ==
[~2019-08-25] VITALS: Ht 163 cm; Wt 68.0 kg
[~2019-08-25] MED LIST changes: +CATHETER FLUSH 10 ML SYR IV PRN; +METO-333 PO; +REGADENOSON 0.4 MG/5 ML SYR (LEXISCAN) IV ONE
[2019-08-25 09:48] VITALS: BP 140/80
--- NOTE | 2019-08-25 17:21 | STRESS TEST ---
DATE OF SERVICE: 08/17/2019 RESTING AND POST REGADENOSON TECHNETIUM-99M TETROFOSMIN SPECT CT IMAGING ORDERING PHYSICIAN: Monique Fenton APRN PRIMARY PHYSICIAN: [facility]. CLINICAL DIAGNOSIS: Chest discomfort. Baseline images were carried out after injection of 9 mCi of technetium-99m Tetrofosmin. This was followed by 0.4 mg regadenoson and 30.2 mCi of technetium-99m Tetrofosmin for stress imaging. The electrocardiogram showed atrial fibrillation throughout the study. Ventricular rate was well controlled. The electrocardiogram did not change significantly with the regadenoson infusion. The patient noted mild shortness of breath following regadenoson infusion, which resolved in a few minutes. Review of images at rest and following stress indicates a small apical perfusion defect that appears transient. Gated images show normal global left ventricular systolic function with normal regional wall motion. Left ventricular ejection fraction is calculated to be 59%. CONCLUSIONS: 1. This study suggests a small amount of apical ischemia. 2. Normal regional wall motion. 3. Normal global left ventricular systolic function with an ejection fraction of 59%. Job ID: [id number] DocumentID: [id number] Dictated Date: 08/25/2019 14:59:51 Trimming Inspector Date: 08/25/2019 17:21:10 Dictated By: JUN FRANCISCO MD, MA, FACP, FACC,
== END ==
LOC: CARD 08:08
PROVIDERS: ATTEND Nurse Practitioner Family
DX: I48.21 Permanent atrial fibrillation (principal); R07.89 Other chest pain; R55 Syncope and collapse; I08.0 Rheumatic disorders of both mitral and aortic valves
CPT/HCPCS: 78452; 93017; 93306